=== PATIENT | female | born 1990 | race Caucasian/White ===

== ENCOUNTER 2016-07-22 03:27 | Emergency (ER) | payer SELFPAY ==
[2016-07-22 04:06] VITALS: BP 129/74
== END 2016-07-22 04:06 | disposition home or self-care (01) ==
LOC: ED 03:27
DX: H10.89 Other conjunctivitis (principal)

== ENCOUNTER 2016-08-11 21:37 | Emergency (ER) | payer BC ==
[2016-08-11 21:55] VITALS: BP 129/71
== END 2016-08-11 23:38 | disposition home or self-care (01) ==
LOC: ED 21:37
DX: S96.912A Strain of unspecified muscle and tendon at ankle and foot level, left foot, initial encounter (principal); M79.1 Myalgia; W22.8XXA Striking against or struck by other objects, initial encounter; Y93.89 Activity, other specified; Y99.8 Other external cause status; Y92.89 Other specified places as the place of occurrence of the external cause

== ENCOUNTER 2018-05-28 07:10 | Emergency (ER) | payer BC ==
[~2018-05-28] VITALS: Ht 165.1 cm; Wt 111.6 kg
[2018-05-28 07:15] VITALS: Ht 165.1 cm; Wt 111.6 kg
[2018-05-28 07:56] VITALS: BP 129/84
== END 2018-05-28 07:56 | disposition home or self-care (01) ==
LOC: ED 07:10
DX: B30.9 Viral conjunctivitis, unspecified (principal); Z90.49 Acquired absence of other specified parts of digestive tract

== ENCOUNTER 2020-03-10 19:36 | Emergency (ER) | payer SELFPAY ==
[~2020-03-10] VITALS: Ht 165.1 cm; Wt 90.7 kg
[2020-03-10 19:38] VITALS: Ht 165.1 cm; Wt 90.7 kg
[2020-03-10 20:52] VITALS: BP 124/80
== END 2020-03-10 20:52 | disposition home or self-care (01) ==
LOC: ED 19:36
DX: L50.9 Urticaria, unspecified (principal); Z90.49 Acquired absence of other specified parts of digestive tract
CPT/HCPCS: J7512

== ENCOUNTER 2020-03-12 10:44 | Emergency (ER) | payer SELFPAY ==
[~2020-03-12] VITALS: Ht 165.1 cm; Wt 104.8 kg
[2020-03-12 10:54] VITALS: Ht 165.1 cm; Wt 104.8 kg
[2020-03-12 13:19] VITALS: BP 146/82
== END 2020-03-12 13:19 | disposition home or self-care (01) ==
LOC: ED 10:44
DX: L50.9 Urticaria, unspecified (principal); T78.40XA Allergy, unspecified, initial encounter; X58.XXXA Exposure to other specified factors, initial encounter
CPT/HCPCS: J1100

== ENCOUNTER 2020-03-16 01:00 | Emergency (ER) | payer SELFPAY ==
[~2020-03-16] VITALS: Ht 165.1 cm; Wt 100.2 kg
[2020-03-16 01:14] VITALS: Ht 165.1 cm; Wt 100.2 kg
[2020-03-16 02:29] LABS: BASOPHIL % 0.2 % (0.2-1.3); PLATELET COUNT 298 x10^3mcL (179-408); RED CELL DISTRIBUTION WIDTH 12.8 % (12.3-17.7)
[2020-03-16 02:37] LABS: CALCIUM 8.6 mg/dL (8.5-10.1); CARBON DIOXIDE 26.5 mmol/L (21-32); CHLORIDE SERUM 101 mmol/L (98-107); CREATININE SERUM 0.7 mg/dL (0.6-1.0); GFR1 > 60 mL/min; GLUCOSE SERUM 264 mg/dL (74-106); POTASSIUM SERUM 3.7 mmol/L (3.5-5.1); SODIUM SERUM 137 mmol/L (136-145)
[2020-03-16 02:41] LABS: ALBUMIN 3.8 g/dL (3.4-5.0); ALKALINE PHOSPHATASE 60 U/L (46-116); ALT/SGPT 38 U/L (14-59); BILIRUBIN TOTAL 0.25 mg/dL (0.20-1.00); TOTAL PROTEIN, SERUM 7.5 g/dL (6.4-8.2)
[2020-03-16 03:03] LABS: AST/SGOT 5 U/L (15-37)
[2020-03-16 03:55] VITALS: BP 122/71
[2020-03-17 06:06] LABS: RAPID PLASMA REAGIN Non Reactive (Non Reactive)
== END 2020-03-16 03:55 | disposition home or self-care (01) ==
LOC: ED 01:00
PROVIDERS: Emergency Medicine
DX: R21 Rash and other nonspecific skin eruption (principal)